=== PATIENT | female | born 1995 | race African-American/Black ===

== ENCOUNTER 2018-10-03 19:37 | Inpatient (IN) | payer OTHER, SELFPAY ==
--- NOTE | 2018-10-01 10:34 | PCM.HP.BLA ---
History and Physical Date of Admission: 10/04/18 Micki Canseco Physician TRAFFIC INVESTIGATOR H&P Signed Encounter Date: 10/01/2018 Expand All Collapse All Hide copied text Thierry for details Nae Anderson is a 23 year old female who presents for preoperative visit for planned elective repeat section on October 04, 2018. Patient reports that she does go into labor prior to that time she would like a trial of labor after however if not she will plan for scheduled section. Patient denies any vaginal bleeding, leaking fluid, regular contractions. Patient reports good movement. Denies any chest pain, shortness of breath. Patient offers no other concerns today ? PAST?MEDICAL?HISTORY PAST MEDICAL HISTORY Diagnosis Date ? ADHD ? ? Chlamydia 11/2017 ? PMH - PAST MEDICAL HISTORY OF 10/25 ? normal color vision ? depression ? ? Varicella ? ? mild case age 5 years ? PAST?SURGICAL?HISTORY PAST SURGICAL HISTORY Procedure Laterality Date ? DELIVERY ONLY ? 04/15/2015 ? , low transverse ? NEXPLANON INSERTION ? 04/2015 ? removed ? FAMILY?HISTORY FAMILY HISTORY Problem Relation Age of Onset ? No Known Problems Paternal Grandfather ? ? No Known Problems Paternal Grandmother ? ? Hypertension Maternal Grandfather ? ? No Known Problems Maternal Grandmother ? ? other (Anemia) Mother ? ? No Known Problems Father ? ? No Known Problems Sister ? ? No Known Problems Brother ? ? No Known Problems Sister ? ? No Known Problems Sister ? ? Diabetes Other ? ? MGGMO ? 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 CURRENT?MEDICATIONS ? Current Outpatient Medications: Gqwpexbb-Ag-Naz-Fe-FA ( VITAMIN) tab Take 1 tablet by mouth once daily. ? No current facility-administered medications for this visit. Allergies As of Date: 10/01/2018 (No Known Allergies) Fully Assessed 10/01/2018 ? ? REVIEW OF SYSTEMS Abdomen: no pain Bladder: no dysuria.. Expanded ROS: GENERAL: No weight loss, malaise or fevers Allergies and current medication updated:Yes ? EXAM: BP 118/76 Wt 282 lb (127.9kg) LMP 12/31/2017 ? GENERAL: pleasant, female in no apparent distress HEENT: Normocephalic and atraumatic NECK: full range of motion DERMATOLOGY: Normal, without lesions, non-icteric and non-hirsute ABDOMEN: soft, non-tender and gravid. FHR 141, FH 40cm PELVIC: deferred BIMANUAL: deferred NEURO: alert and oriented x3,exam grossly non-focal EXTREMITIES: normal ? ASSESSMENT AND PLAN: Encounter Diagnosis ? ? ICD-10-CM ? 1. with history of section, antepartum O34.219 URINE OB DIP B/O 2. 39 weeks gestation of Z3A.39 URINE OB DIP B/O ? 3. Pt has been counseled on risks/benefits and alternatives of surgery including but not limited to anesthesia, bleeding, infection, injury to pelvic structures including bowel, bladder, ureters and vessels. Pt wishes to proceed with surgery at this time. 4. C/s scheduled, TOLAC requested if spontaneous labor prior to this time. ? Micki Briscoe MD ?
[2018-10-03 18:46] LABS: ROM Internal Control Test YES-OK TO RESULT pt. (Internal QC); ROM Patient Test Negative (Negative)
[2018-10-03] MEDS: Lactated Ringers 1,000 ML 999 ML IV (19:50)
[2018-10-03 19:53] VITALS: BMI 43.2
[2018-10-03 20:02] LABS: Absolute Lymphocyte Count 1.86 X10^3/ul (0.83-4.51); Absolute Neutrophil Count 7.9 X10^3/uL (2.0-7.7); Basophil# 0.01 X10^3/uL; Basophil% 0.1 % (0-1); Eosinophil# 0.05 X10^3/uL; Eosinophils% 0.5 % (0-5); Hematocrit 39.4 % (37-47); Hemoglobin 13.3 g/dl (12.0-15.0); Lymphocyte # 1.86 X10^3/ul (4.0); Lymphocyte % 17.7 % (19-41); Mean Corp Hgb Conc 33.8 g/gl (32-36); Mean Corpuscular Hgb 30.2 pg (27.0-32.0); Mean Corpuscular Volume 89.3 fL (81-99); Mean Platelet Vol. 9.9 fl (6.2-12.0); Monocyte# 0.64 X10^3/uL; Monocyte% 6.1 % (0-10); Neutrophil # 7.87 X10^3/uL (2.7-7.7); Neutrophil % 75.1 % (47-70); Platelet Count 282 K/mm3 (150-450); RBC Distribution Width CV 13.4 % (11.6-14.6); RBC Distribution Width SD 43.7 fl (35.1-43.9); Red Blood Count 4.41 M/mm3 (4.2-5.4); White Blood Count 10.5 K/mm3 (4.4-11.0)
[2018-10-03 20:05] LABS: POSITIVE COUNT NO; POSITIVE DIFFERENTIAL NO; POSITIVE MORPHOLOGY NO
--- NOTE | 2018-10-03 20:06 | PCM.HP.BLA ---
History and Physical Date of Admission: 10/03/18 Patient Name: NAE ANDREW Date of : 89 Patient Status: Inpatient Attending Provider: Micki Briscoe Date: 10/01/18 History and Physical Date of Admission: 10/03/18 Micki Canseco Physician FURNITURE SERVICER H&P Signed Encounter Date: 10/01/2018 Expand All Collapse All Hide copied text Hover for details Nae Andrew is a 23 year old female who presents for preoperative visit for planned elective repeat section on October 04, 2018. Patient reports that she does go into labor prior to that time she would like a trial of labor after however if not she will plan for scheduled section. Patient denies any vaginal bleeding, leaking fluid, regular contractions. Patient reports good movement. Denies any chest pain, shortness of breath. Patient offers no other concerns today ? PAST?MEDICAL?HISTORY PAST MEDICAL HISTORY Diagnosis Date ? ADHD ? ? Chlamydia 11/2017 ? PMH - PAST MEDICAL HISTORY OF 10/25 ? normal color vision ? depression ? ? Varicella ? ? mild case age 5 years ? PAST?SURGICAL?HISTORY PAST SURGICAL HISTORY Procedure Laterality Date ? DELIVERY ONLY ? 04/15/2015 ? , low transverse ? NEXPLANON INSERTION ? 04/2015 ? removed ? FAMILY?HISTORY FAMILY HISTORY Problem Relation Age of Onset ? No Known Problems Paternal Grandfather ? ? No Known Problems Paternal Grandmother ? ? Hypertension Maternal Grandfather ? ? No Known Problems Maternal Grandmother ? ? other (Anemia) Mother ? ? No Known Problems Father ? ? No Known Problems Sister ? ? No Known Problems Brother ? ? No Known Problems Sister ? ? No Known Problems Sister ? ? Diabetes Other ? ? MGGMO ? 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 CURRENT?MEDICATIONS ? Current Outpatient Medications: Jpzwzari-Bx-Gyj-Fe-FA ( VITAMIN) tab Take 1 tablet by mouth once daily. ? No current facility-administered medications for this visit. Allergies As of Date: 10/01/2018 (No Known Allergies) Fully Assessed 10/01/2018 ? ? REVIEW OF SYSTEMS Abdomen: no pain Bladder: no dysuria.. Expanded ROS: GENERAL: No weight loss, malaise or fevers Allergies and current medication updated:Yes ? EXAM: BP 118/76 Wt 282 lb (127.9kg) LMP 12/31/2017 ? GENERAL: pleasant, female in no apparent distress HEENT: Normocephalic and atraumatic NECK: full range of motion DERMATOLOGY: Normal, without lesions, non-icteric and non-hirsute ABDOMEN: soft, non-tender and gravid. FHR 141, FH 40cm PELVIC: deferred BIMANUAL: deferred NEURO: alert and oriented x3,exam grossly non-focal EXTREMITIES: normal ? ASSESSMENT AND PLAN: Encounter Diagnosis ? ? ICD-10-CM ? 1. with history of section, antepartum O34.219 URINE OB DIP B/O 2. 39 weeks gestation of Z3A.39 URINE OB DIP B/O ? 3. Pt has been counseled on risks/benefits and alternatives of surgery including but not limited to anesthesia, bleeding, infection, injury to pelvic structures including bowel, bladder, ureters and vessels. Pt wishes to proceed with surgery at this time. 4. C/s scheduled, TOLAC requested if spontaneous labor prior to this time. ? Micki Briscoe MD ? ? ?
[2018-10-03] MEDS: Sodium Citrate/Citric Acid 30 ML UDC PO (20:33)
[2018-10-03] MEDS: Oxytocin 30 units/NS 500 ml 30 UNITS/500 ML IV.SOLN 167 UNITS IV (21:26)
[2018-10-03] MEDS: Ketorolac 15 MG/ML Vial 30 MG IV (22:00)
--- NOTE | 2018-10-03 22:08 | PCM.OPRPT ---
Delivery Classification: Scheduled Final MIGUELITO: 10/08/18 Final MIGUELITO Source: US <20 weeks Gestational age: 39 Weeks and 2 Days Indications: Patient presented to labor and delivery on October 03, 2018 for possible rupture of membranes. Rupture membrane test was negative. Patient was scheduled for her repeat elective on 10/04/2018 at 7:30 AM. Nursing staff was available and agreed that we could proceed with a scheduled section at this time -patient agreed Indications for : Repeat Elective Description of Procedure: After informed consent was obtained the patient was taken to the operating room she was given spinal anesthesia. He was placed in the supine position. She was then prepped and draped in normal sterile fashion. Once spinal anesthesia was found to be adequate skin incision was made with a scalpel in a Pfannenstiel fashion. It was carried down to the underlying layer of the fascia. Fascia was then incised midline with scapel and extended laterally using curved valentin. 2 straight Navarro's were placed in the superior aspect of the fascial edge and the rectus muscles were dissected off [bluntly]. Attention was then turned to the inferior aspect where again the fascial edge was grasped with 2 straight Navarro clamps tented up and the rectus muscle dissected off sharply. At this time the rectus muscles were grasped in the midline using 2 Allis clamps and scalpel was used to separate the rectus muscles. Using blunt force the peritoneum was then entered. Metzenbaums were used to take down the rectus muscles inferiorly as well as the peritoneum. At this time the vesicouterine peritoneum was identified. Uterine incision was made in a low transverse fashion with the scalpel and then entered bluntly. Gentle opposing traction was placed to extend the uterine incision. The membranes were ruptured amniotic fluid clear. 's head was then brought to the uterine incision was delivered atraumatically followed by the rest infant's body. At this time delayed cord clamping was performed mouth nose were suctioned. Infant was then handed to the waiting nursery team. The placenta was then removed with gentle traction. The uterus was removed from the intra-abdominal cavity is wrapped in a moist lap. He was cleared of all clots and debris using a moist lap. Ring clamps were placed on the uterine angles. #1 Vicryl suture was used in a running locked fashion for the first layer. Followed by second imbricating layer with #1 Vicryl. At this time then the uterus was placed back into abdominal cavity uterine incision was evaluated and noted to be of good hemostasis. Monty placed over uterine incision tubes and ovaries were evaluated they were normal. The peritoneum was grasped with Kellys. Peritoneum was reapproximated using #2 Vicryl suture in a running fashion. Monty was placed over the muscle.. The fascia was then reapproximated using #1 PDS in a running fashion. Subcutaneous layer was evaluated and Bovie was used for any small oozing that was noted per #2-0 plain gut suture was then used to reapproximate the subcutaneous layer 4-0 Monocryl was used to reapproximate the skin in a subcutaneous fashion. Dry sterile dressing was applied. Instrument lap needle count were correct ?2. Anticipated normal postoperative course for this patient. Amniotic Membrane Rupture Type: Artificial Amniotic Fluid Description: Clear Placenta Disposition: [facility] Drain: Avina to straight drain Cord Entanglement: None Cord Vessel Description: 3 Vessels Esitmated Blood Loss (ml): 800 Infant Gender: Male (1 minute): 8 (5 minute): 9 Pre-op Antibiotic Given: - - ancef 3 grams Pt instructed on risks of surgery: Bleeding, Anesthesia Risks, Infection, Injury to surrounding structure(s) including bowel and bladder Complications: None - Admit VTE Documentation VTE Present on Admission: Yes VTE Mechan Device Prophylaxis: SCD's VTE Pharm Prophylaxis ordered?: Yes
[2018-10-03 22:25] VITALS: BP 106/73; BP 138/78; PULSE 97; RESP 17; TEMP 35.8; O2SAT 97
[2018-10-03] MEDS: Lactated Ringers 1,000 ML 100 ML IV (22:30)
[2018-10-03 22:45] VITALS: BP 129/57; BP 138/78; PULSE 77; RESP 17; O2SAT 96
[2018-10-03 23:00] VITALS: BP 127/54; BP 138/78; PULSE 68; RESP 16; O2SAT 96
[2018-10-03 23:15] VITALS: BP 120/64; BP 138/78; PULSE 95; RESP 17; O2SAT 96
[2018-10-03 23:30] VITALS: BP 124/72; BP 138/78; PULSE 94; RESP 16; O2SAT 97
[2018-10-03] MEDS: Ondansetron 4 MG/2 ML Vial IV (23:36)
[2018-10-03 23:45] VITALS: BP 122/65; BP 138/78; PULSE 86; RESP 16; O2SAT 97
[2018-10-04] VITALS (16 sets, daily range): BP systolic 108–140; BP diastolic 52–78; PULSE 64–99; RESP 16–18; TEMP 35.5–36.3; O2SAT 97–100
[2018-10-04] MEDS: Lactated Ringers 500 ML 999 ML IV (04:40)
[2018-10-04 05:02] LABS: Hematocrit 35.7 % (37-47); Mean Corp Hgb Conc 33.6 g/gl (32-36); Mean Corpuscular Hgb 29.8 pg (27.0-32.0); Mean Corpuscular Volume 88.6 fL (81-99); Platelet Count 257 K/mm3 (150-450); RBC Distribution Width CV 13.2 % (11.6-14.6); RBC Distribution Width SD 41.7 fl (35.1-43.9); Red Blood Count 4.03 M/mm3 (4.2-5.4); White Blood Count 14.9 K/mm3 (4.4-11.0)
[2018-10-04 05:04] LABS: Scan Indicated on CBC? Y/N NO
[2018-10-04] MEDS: Lactated Ringers 1,000 ML 100 ML IV ×2 (05:10→11:37)
[2018-10-04] MEDS: Ketorolac 15 MG/ML Vial 30 MG IV ×3 (06:38→18:24)
[2018-10-04] MEDS: proMETHazine 25 MG/ML Syringe IV (09:10)
--- NOTE | 2018-10-04 09:22 | PN.OBGYN_ITS ---
Subjective: pt seen at bedside, doing well. pt reports good pain control. Nausea improving. denies CP, SOB, dizziness. breast feeding - Physical Exam General: Alert, Oriented x3 Abdomen: Non Tender, - - fundus firm. Dressing dry and intact Extremities: No Calf Tenderness Vital Signs Temp Pulse Resp BP Pulse Ox 97.3 F L 86 16 127/73 H 99 10/04/18 07:55 10/04/18 07:55 10/04/18 07:55 10/04/18 06:35 10/04/18 07:55 Oxygen Delivery Method Room Air Weight: 129.2 kg Body Mass Index (BMI) 43.2 Intake and Output for Last 24 Hours 10/02/18 10/03/18 10/04/18 23:59 23:59 23:59 Intake Total 800 / 800 700 / 700 Output Total 2160 / 2160 Balance 800 / 800 -1460 / -1460 Laboratory Tests Past 24 Hrs 10/03/18 10/03/18 10/03/18 18:10 19:50 19:50 WBC 10.5 RBC 4.41 Hgb 13.3 Hct 39.4 MCV 89.3 MCH 30.2 MCHC 33.8 RDW 13.4 RDW Differential 43.7 Plt Count 282 MPV 9.9 Immature Gran % (Auto) 0.500 Neut % (Auto) 75.1 H Lymph % (Auto) 17.7 L [place] % (Auto) 6.1 Eos % (Auto) 0.5 Baso % (Auto) 0.1 Absolute Neuts (auto) 7.9 H Absolute Lymphs (auto) 1.86 Total Counted Not Reportable Vag Amniotic Fld Detect Negative Blood Type O POSITIVE Antibody Screen NEGATIVE 10/04/18 04:50 WBC 14.9 H RBC 4.03 L Hgb 12.0 Hct 35.7 L MCV 88.6 MCH 29.8 MCHC 33.6 RDW 13.2 RDW Differential 41.7 Plt Count 257 MPV 10.0 Immature Gran % (Auto) Neut % (Auto) Lymph % (Auto) [place] % (Auto) Eos % (Auto) Baso % (Auto) Absolute Neuts (auto) Absolute Lymphs (auto) Total Counted Vag Amniotic Fld Detect Blood Type Antibody Screen Medical Necessity - Tobacco Use Smoking Status: Former smoker Assessment/Plan POD#1, doing well routine care pain mgmt yonis ARNDT today Labs reviewed
[2018-10-04] MEDS: Enoxaparin 40 MG/0.4 ML Syringe SC (11:38)
[2018-10-04] MEDS: 0.9% Saline Lock 10 ML Syringe IV (21:30)
[2018-10-05] MEDS: Ketorolac 15 MG/ML Vial 30 MG IV ×3 (00:15→12:27)
[2018-10-05] MEDS: 0.9% Saline Lock 10 ML Syringe IV ×2 (00:15→05:48)
[2018-10-05 01:25] VITALS: BP 124/64; PULSE 79; RESP 18; TEMP 35.9; O2SAT 98
--- NOTE | 2018-10-05 07:25 | PCM.PN.OB ---
Subjective: pt seen at bedside, doing well. pt reports good pain control. lochia mild. breast feeding going well. tolerating regular diet. Lochia mild. - Physical Exam General: Alert, Oriented x3 Abdomen: Soft, Non-Distended, - - Fundus firm. INcision site dry and intact Extremities: No Calf Tenderness Vital Signs Temp Pulse Resp BP Pulse Ox 96.6 F L 79 18 124/64 H 98 10/05/18 01:25 10/05/18 01:25 10/05/18 01:25 10/05/18 01:25 10/05/18 01:25 Oxygen Delivery Method Room Air Weight: 129.2 kg Body Mass Index (BMI) 43.2 Intake and Output for Last 24 Hours 10/03/18 10/04/18 10/05/18 23:59 23:59 23:59 Intake Total 800 / 800 2100 / 2100 Output Total 3660 / 3660 900 / 900 Balance 800 / 800 -1560 / -1560 -900 / -900 Medical Necessity - Tobacco Use Smoking Status: Former smoker Assessment/Plan POD#2 s/p Repeat cs ambulation pain mgmt dc home
--- NOTE | 2018-10-05 07:29 | PCM.DCCSEC ---
Discharge Diet: No Restrictions Discharge Activity: Return to Normal Activity, May Not Drive - for 2 weeks, May not drive while taking narcotic pain medications., May Shower, May Take a Tub Bath - in 7 days. May resume sexual activity in: 4-6 weeks Lifting Restrictions: 20 pounds Additional Activity Instructions:: Nothing in the vagina for 4-6 weeks. You may return to work/school in 6 weeks. Call your doctor if your incision/area has: Continuous Slow Oozing, Sudden Increased Bleeding, Increased Pain/ Swelling, Increased Redness, Foul Smelling Discharge Call your doctor if you observe: Fever of 101 or Higher, Using more than one pad per hour - for 2 hours Suture Line Care: Avoid Pulling/Pushing, Avoid Pinching/Bending Cleanse incision/area with: Keep Dressing Clean & Dry Additional Instructions: If you experience any of the following, contact your healthcare provider. Bleeding that soaks a pad every hour for 2 hours Fever 100.4 or higher Unrelieved incision or abdominal pain Swelling, redness, discharge or bleeding from your incision or episiotomy site Your incision begins to separate Problems urinating (including inability to urinate or burning while urinating). Visual changes Severe headache Flu-like symptoms Pain or redness in one of both of your breasts Pain, warmth, tenderness or swelling in your legs, especially the calf area Frequent nausea and vomiting Symptoms of depression or anxiety If you experience any of the following, call 911 or go to the nearest Emergency Room. Chest pain Problems breathing Seizure activity Partial or complete paralysis of a body part, slurred speech, weakness or drooping of the face, or a sudden inability to walk or hold your balance Allergies/Adverse Reactions: Allergies No Known Allergies Allergy (Verified 10/28/13 08:49) Medications to take at Discharge Vits [Prenatabs FA ] 1 tab PO DAILY 10/03/18 Ibuprofen [Motrin] 600 mg PO Q6H PRN PRN #30 tab 10/05/18 Oxycodone HCl/Acetaminophen [Percocet 5/325] 1 tablet PO Q6H PRN PRN 7 Days #20 tablet 10/05/18 Senna/Docusate Sodium [Senokot-S] 1 - 2 tab PO DAILY PRN #20 tab 10/05/18 The following prescriptions were given: Ibuprofen [Motrin] 600 mg PO Q6H PRN PRN #30 tab PRN Reason: Mild Pain (-06/03) [facility] [facility]. Oxycodone HCl/Acetaminophen [Percocet 5/325] 1 tablet PO Q6H PRN PRN 7 Days #20 tablet PRN Reason: Pain Transmission Status: [facility]. Senna/Docusate Sodium [Senokot-S] 1 - 2 tab PO DAILY PRN #20 tab PRN Reason: Constipation Transmission Status: Pending to [facility] Follow-Up: Call to make an appointment with your doctor for an incision check in 1-2 weeks. You will also need a 6 week post- follow up appointment. Test results from this visit will be discussed in further detail at your follow-up appointment, if applicable. Please Follow Up With: Micki Briscoe MD - Call to make an appointment for an incision check in 1-2 [phone] When: You will need a post- check in 6 weeks. Primary Care Physician: Saad Hopper MD [Primary Care Provider] -
--- NOTE | 2018-10-05 07:29 | PCM.DC.BLA ---
Discharge Summary Date of Admission: 10/03/18 Date of Discharge: 10/05/18 Summary: pt underwent repeat elective c/s on 10/03/18 at 39.2 wk gestation. uncomplicated- Dc home on POD#2. Hemodynamically stable - Physical Exam Vital Signs Temp Pulse Resp BP Pulse Ox 96.6 F L 79 18 124/64 H 98 10/05/18 01:25 10/05/18 01:25 10/05/18 01:25 10/05/18 01:25 10/05/18 01:25 Oxygen Delivery Method Room Air Weight: 129.2 kg Body Mass Index (BMI) 43.2 Intake and Output for Last 24 Hours 10/03/18 10/04/18 10/05/18 23:59 23:59 23:59 Intake Total 800 / 800 2100 / 2100 Output Total 3660 / 3660 900 / 900 Balance 800 / 800 -1560 / -1560 -900 / -900
[2018-10-05 09:40] VITALS: BP 124/73; PULSE 85; RESP 16; TEMP 36.2; O2SAT 98
[2018-10-05] MEDS: Enoxaparin 40 MG/0.4 ML Syringe SC (09:41)
== END 2018-10-05 13:30 | disposition home or self-care (01) | DRG 788 ==
LOC: WP 10-04 11:11 → WPOUT 10-04 12:04 → WP 10-04 12:05
PROVIDERS: Admitting Provider Obstetrics & Gynecology; Family Provider Family Medicine; PCP Family Medicine; Visit Provider Obstetrics & Gynecology
DX: O34.211 Maternal care for low transverse scar from previous cesarean delivery (principal); N85.8 Other specified noninflammatory disorders of uterus; Z3A.39 39 weeks gestation of pregnancy; Z37.0 Single live birth; Z87.891 Personal history of nicotine dependence
CPT/HCPCS: 59025; 59050; 84112; 85025; 85027; 86850; 86900; 99218; J7120; A4216; G0378; J2405

== ENCOUNTER → 2020-03-09 | Outpatient (CLI) | payer OTHER, SELFPAY | END | disposition home or self-care (01) | PROVIDERS: PCP Family Medicine; Referring Provider Otolaryngology Otolaryngology/Facial Plastic Surgery; Visit Provider Otolaryngology Otolaryngology/Facial Plastic Surgery | DX: J03.90 Acute tonsillitis, unspecified (principal) | CPT/HCPCS: 87070 ==

== ENCOUNTER → 2020-03-18 | Outpatient (CLI) | payer OTHER, SELFPAY ==
[2020-03-18 11:24] VITALS: BMI 44.4
[2020-03-22 03:06] LABS: Chlamydia By Nucleic Acid AMP Negative (Negative)
[2020-03-23 09:43] LABS: Gonococcus By Nucleic Acid AMP Negative (Negative)
== END | disposition home or self-care (01) ==
LOC: LABSPEC 14:18
PROVIDERS: PCP Family Medicine; Referring Provider Nurse Practitioner Women's Health; Visit Provider Nurse Practitioner Women's Health
DX: Z11.3 Encounter for screening for infections with a predominantly sexual mode of transmission (principal); N76.0 Acute vaginitis
CPT/HCPCS: 87070; 87205; 87491; 87591

== ENCOUNTER 2020-07-18 21:56 | Emergency (ER) | payer OTHER, SELFPAY ==
[2020-03-18 11:24] VITALS: BMI 44.4
[2020-07-18 21:57] VITALS: BP 130/99; PULSE 91; RESP 16; TEMP 35.8; O2SAT 96; BMI 41.8
--- NOTE | 2020-07-18 22:11 | ED.VIS.GEN ---
History of Present Illness Chief Complaint: Lower Extremity Injury Informant: Patient Narrative: 5-year-old female states that 2 weeks ago she played a game of basketball on . After the game she had some soreness of her right knee. She tells me she played another game on and she was doing a lay up and came down and the leg buckled. Since then she has had increasing swelling and pain to the leg. States the leg feels like it and give out. She notes pain laterally. She states that she went to urgent care and was given prednisone. She states that she believes her something more to it. She has not required any crutches or canes. She has been using a neoprene sleeve. Past Medical History - Allergies and Home Meds Allergies/Adverse Reactions: Allergies No Known Allergies Allergy (Verified 07/18/20 21:59) Primary Care Physician: Durga King DO [STAFF PHYSICIAN] - 10-14 Days if not better Past Medical History: None Surgical History: noncontributory Lives: With Family Smoking Status: Current every day smoker Drugs: None Review of Systems General: Denies: Chills, Fever, Sweats Eyes: Denies: Visual changes - bilaterally, Diplopia ENT: Denies: Rhinorrhea, Sore throat Cardiovascular: Denies: Chest pain, Palpitations Respiratory: Denies: Dyspnea, Cough, Dyspnea on exertion Gastrointestinal: Denies: Abdominal pain, Nausea, Vomiting, Diarrhea, Melena, Hematochezia Genitourinary: Denies: Dysuria, Hematuria, Frequency Musculoskeletal: Reports: Swelling, Extremity Pain. Denies: Back pain Skin: Denies: Rash, Wounds Neurological: Denies: Headache, Weakness, Numbness Physical Exam Vital Signs/Narrative: Vital Signs Temp Pulse Resp BP Pulse Ox 07/18/20 21:57 96.4 F L 91 16 130/99 H 96 Inital Vital Signs reviewed: Yes General: Well nourished, Well developed, No Acute Distress Head: Normocephalic, Atraumatic Eyes: Perrl, EOMI ENT: Moist mucous membranes, No rhinorrhea Neck: Supple, Nontender Cardiovascular: Regular rate, Regular rhythm, No murmurs Respiratory: No distress, CTA bilaterally, Chest nontender Abdomen: Soft, Nontender, Nondistended, Normal bowel sounds Back: Nontender, Normal Inspection Extremities: Tenderness - To palpation laterally of the knee. There is some mild soft tissue swelling but no palpable effusion. Ligamentous testing appears stable compared to the other side. Though the patient does guard Skin: Normal color, No rash Neurological: Alert, Oriented x3, Cranial nerves II-XII grossly intact, Normal Strength, Normal Sensation Psychological: Normal affect, Normal Mood Diagnostic/Tx/Re-eval - Medical Decision Making My interpretation of the 4 view knee x-rays is no acute fracture or effusion. Patient be discharged home with instructions to ice rest and use compression. If not improved in 10 to 14 days she will need to follow-up with orthopedics. At this point I think she most likely has a LCL strain. ED Disposition - Plan for ED Patient: Disposition: Home or Assisted Living Diagnosis: Knee LCL sprain Instructions: ED Sprain Knee Collateral Ligaments Referrals: Durga King DO [STAFF PHYSICIAN] - 10-14 Days if not better
--- NOTE | 2020-07-18 22:20 | RAD_ITS ---
STUDY: X-RAY - RIGHT KNEE REASON FOR EXAM: Female, 25 years old. injury TECHNIQUE: 4 view(s) of the knee. COMPARISON: None. FINDINGS: Normal visualized distal femur. Normal visualized proximal tibia and fibula. Normal proximal tibiofibular articulation. There is no demonstrated fracture. Normal medial femorotibial compartment. Normal lateral femorotibial compartment. Normal patellofemoral articulation. There is no demonstrated joint effusion. The soft tissue structures are unremarkable. RAD/Knee 4 or More Views IMPRESSION: Normal x-ray examination of the knee. Electronically Signed: Mikel Morales MD at 22:46 EDT , Service support ,
== END 2020-07-18 22:38 | disposition home or self-care (01) ==
LOC: ED 22:31
PROVIDERS: Emergency Provider Emergency Medicine; PCP Family Medicine
DX: S83.421A Sprain of lateral collateral ligament of right knee, initial encounter (principal); F17.200 Nicotine dependence, unspecified, uncomplicated; X58.XXXA Exposure to other specified factors, initial encounter; Y93.67 Activity, basketball; Y92.9 Unspecified place or not applicable; Y99.9 Unspecified external cause status; Z79.899 Other long term (current) drug therapy
CPT/HCPCS: 73564; 99282

== ENCOUNTER → 2020-09-23 12:13 | Outpatient (CLI) | payer OTHER, SELFPAY ==
[2020-09-23 14:03] LABS: hCG Titer Quant., Serum < 1 mIU/mL (1-3)
== END ==
PROVIDERS: PCP Family Medicine; Referring Provider Nurse Practitioner Women's Health; Visit Provider Nurse Practitioner Women's Health
DX: N92.6 Irregular menstruation, unspecified (principal)
CPT/HCPCS: 36415; 84702

== ENCOUNTER 2021-10-04 12:35 | Emergency (ER) | payer MEDICAID, SELFPAY ==
[2021-10-04 12:36] VITALS: BP 151/93; PULSE 84; RESP 16; TEMP 36.4; O2SAT 97; BMI 41.8
--- NOTE | 2021-10-04 13:29 | EDS_ITS ---
HPI HPI - Female History of Present Illness Chief Complaint: Vag Bleeding Informant: patient Narrative Narrative: 26-year-old female presenting to the emergency department chief complaint of heavy vaginal bleeding. Patient states that she got a new Nexplanon inserted in June. She has had several periods since that time. She started her menstrual cycle yesterday and it appeared normal. Today however when she was at work she felt a gush of blood and states that she had very large clots come out. She reports that she put a super tampon in and a maxi pad but she filled that within minutes. She denies any easy bruising or gum bleeding. States that this is very atypical for her. She sees Dr. Canseco for gynecology. PFSH [facility] Home Medications dextroamphetamine-amphetamine 30 mg tablet (Adderall) 40 mg PO DAILY 03/18/20 [History Last Taken Unknown] etonogestrel 68 mg subdermal implant (Nexplanon) 1 implant subdermal ONCE 03/18/20 [History Last Taken Unknown] Allergy/AdvReac Type Severity Reaction Status Date / Time No Known Allergies Allergy Verified 10/04/21 12:38 Family History Grandfather Hypertension Mother Anemia Surgical History S/P Social History household members: children number of children: 2 current occupational status: employed current occupation: [employer] history of recent travel: No sexually active: Yes Smoking Status: Current every day smoker tobacco type: cigarettes alcohol intake: current alcohol intake frequency: a few times a month substance use type: does not use what type of physical activity do you participate in: walking seatbelt use: always do you feel safe at home: Yes additional social history: single ROS ROS ED Constitutional Constitutional ED: Denies chills or weight loss Eyes Eyes: Denies change in vision or diplopia ENT ENT ED: Denies ear pain, rhinorrhea or sore throat Cardiovascular Cardiovascular: Denies chest pain, orthopnea, palpitations or racing heartbeat Respiratory/Chest Respiratory/Chest: Denies cough, dyspnea or orthopnea Gastrointestinal Gastrointestinal: Denies abdominal pain, diarrhea, nausea or vomiting Genitourinary Genitourinary ED: Reports other Details: Heavy vaginal bleeding ; Denies dysuria, hematuria or urinary frequency Musculoskeletal Musculoskeletal: Denies arthralgias or myalgias Integumentary Denies abscess or rash Neurologic Neurologic: Denies headache(s) or weakness Psychiatric Psychiatric: Denies anxiety, depression, suicidal ideation or suicidal thoughts Endocrine Endocrinology: Denies polydipsia, polyphagia or polyuria Allergic/Immunologic Allergic/Immunologic ED: Denies mouth swelling, tongue swelling or urticaria EXAM Physical Exam Const Vital Signs: 10/04/21 12:36 Temperature 97.6 F L Temperature Source Temporal Pulse Rate 84 Respiratory Rate 16 Blood Pressure 151/93 H Blood Pressure Mean 112 Pulse Ox 97 Oxygen Delivery Method Room Air Positive well nourished, well developed and obese General Appearance ED: well developed Nutritional Appearance: obese HEENT Reports normocephalic, head/scalp atraumatic and moist mucous membranes Eyes PERRL and EOMs intact bilaterally Neck no lymphadenopathy, supple and no JVD Resp normal respiratory effort and clear to auscultation bilaterally Cardio regular rate, regular rhythm and no murmurs GI normal to inspection, nondistended, normoactive bowel sounds and non-tender Palpation: soft Back/Spine no CVA tenderness and normal ROM Extremity normal to inspection General Extremety ED: Negative for edema General Extremity: Negative for edema Neuro oriented x3 and CN's II-XII intact bilaterally Sensorium / Orientation: alert Motor Exam: strength 5/5 throughout Psych mental status grossly normal Mood & Affect: Negative for depressed or tearful Skin no rashes or lesions noted and no wounds MDM MDM MDM Narrative Medical decision making narrative: Hemoglobin 13.7 platelet count of 350. Normal coagulation times and her test is negative. Patient feels reassured. 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 Lab Data Labs: Laboratory Results - last 24 hr 10/04/21 10/04/21 10/04/21 13:45 13:45 13:45 WBC 7.9 RBC 4.49 Hgb 13.7 Hct 41.1 MCV 91.5 MCH 30.5 MCHC 33.3 RDW Std Deviation 40.4 RDW Coeff of Jory 12.1 Plt Count 350 MPV 9.2 Immature Gran % (Auto) 0.400 Neut % (Auto) 64.2 Lymph % (Auto) 27.5 [place] % (Auto) 6.6 Eos % (Auto) 0.9 Baso % (Auto) 0.4 Absolute Neuts (auto) 5.1 Absolute Lymphs (auto) 2.18 Nucleated RBC % 0 PT 12.7 INR 1.0 APTT 27.3 Serum , Qual NEGATIVE Discharge Plan Triage Chief Complaint: Vag Bleeding ED Provider: Abel Rodríguez Dx/Rx/DC Orders Clinical Impression: DUB (dysfunctional uterine bleeding) Instructions: ED Dysfunctional Uterine Bleeding Prescriptions: No Action dextroamphetamine-amphetamine [Adderall] 30 mg tablet 40 mg PO DAILY Nexplanon 68 mg implant 1 implant subdermal ONCE Rx Instructions: as a single dose Primary Care Provider: Saad Hopper Referrals: Micki Briscoe MD [STAFF PHYSICIAN] - As Needed Saad Hopper MD [Primary Care Provider] - Disposition Disposition: Home, Self Care
[2021-10-04 13:51] LABS: Absolute Lymphocyte Count 2.18 X10^3/uL (0.83-4.51); Absolute Neutrophil Count 5.1 X10^3/uL (2.0-7.7); Basophil# 0.03 X10^3/uL; Basophil% 0.4 % (0-1); Eosinophil# 0.07 X10^3/uL; Eosinophils% 0.9 % (0-5); Hematocrit 41.1 % (37-47); Hemoglobin 13.7 g/dL (12.0-15.0); Lymphocyte # 2.18 X10^3/ul (0.83-4.51); Lymphocyte % 27.5 % (19-41); Mean Corp Hgb Conc 33.3 g/dL (32-36); Mean Corpuscular Hgb 30.5 pg (27.0-32.0); Mean Corpuscular Volume 91.5 fL (81-99); Mean Platelet Vol. 9.2 fl (6.2-12.0); Monocyte# 0.52 X10^3/uL; Monocyte% 6.6 % (0-10); NRBC Flagged by Analyzer 0 % (0-5); Neutrophil # 5.09 X10^3/uL (2.7-7.7); Neutrophil % 64.2 % (47-70); Platelet Count 350 K/mm3 (150-450); RBC Distribution Width CV 12.1 % (11.6-14.6); RBC Distribution Width SD 40.4 fl (35.1-43.9); Red Blood Count 4.49 M/mm3 (4.2-5.4); White Blood Count 7.9 K/mm3 (4.4-11.0)
[2021-10-04 14:01] LABS: Prothrombin Time (Protime)PT. 12.7 SECONDS (11.7-14.9)
[2021-10-04 14:03] LABS: Internal QC Validated? YES +Cl - CLEAR BKGD; Pregnancy, Serum, hCG Quali. NEGATIVE Negative
[2021-10-04 14:05] LABS: Partial Thromboplast Time 27.3 Seconds (24.1-36.2)
[2021-10-04 14:40] VITALS: PULSE 68; RESP 18; O2SAT 99
== END 2021-10-04 14:41 | disposition home or self-care (01) ==
PROVIDERS: Emergency Provider Emergency Medicine; PCP Family Medicine; Visit Provider Emergency Medicine
DX: N93.8 Other specified abnormal uterine and vaginal bleeding (principal); F17.210 Nicotine dependence, cigarettes, uncomplicated; Z96.9 Presence of functional implant, unspecified
CPT/HCPCS: 84703; 85025; 85610; 85730; 99282

== ENCOUNTER 2024-07-29 11:09 | Emergency (ER) | payer SELFPAY ==
[2024-07-29 11:11] VITALS: BP 154/100; PULSE 101; RESP 18; TEMP 37; O2SAT 96; BMI 47.0
--- NOTE | 2024-07-29 11:48 | EX.ED.GENINJ ---
HPI History of Present Illness Chief Complaint: Bite Informant: patient Narrative Narrative: Patient 29-year-old female with no signal past medical history presenting for evaluation after concern for spider bite. She notes she was outside yesterday and was leaning against a fence post when she suddenly felt a pain in her right forearm. She did not see blood but she think she was bitten possibly by a spider. Notes that she has had increased redness and a pustule there. Today she feels that her throat is slightly sore and having difficult time swallowing. Denies any speech changes. She also feels that her heart is racing more. She is worried she was having a more severe allergic reaction. She came in for further evaluation. Did not take any medications for symptoms today. Does report a remote history of MRSA infection. Denies any other rash or skin changes. No other complaints or concerns at this time. Denies any sick contacts. No fever reported. PFSH PFSH Home Medications ?Medication ?Instructions ?Recorded ?Last Taken ?Type dextroamphetamine-amphetamine 30 40 mg PO DAILY 03/18/20 Unknown History mg tablet (Adderall) etonogestrel 68 mg subdermal 1 implant subdermal ONCE 03/18/20 Unknown History implant (Nexplanon) amoxicillin 875 mg-potassium 1 tab PO Q12H #14 tabs 07/29/24 Unknown Rx clavulanate 125 mg tablet Allergy/AdvReac Type Severity Reaction Status Date / Time No Known Allergies Allergy Verified 07/29/24 11:13 Family History Grandfather Hypertension Mother Anemia Surgical History S/P Social History household members: children number of children: 2 current occupational status: employed current occupation: [employer] history of recent travel: No sexually active: Yes Smoking Status: Current every day smoker tobacco type: cigarettes alcohol intake: current alcohol intake frequency: a few times a month substance use type: does not use what type of physical activity do you participate in: walking seatbelt use: always do you feel safe at home: Yes additional social history: single ROS ROS ED Constitutional Constitutional ED: Denies chills, fever(s) or sweats ENT ENT ED: Reports sore throat; Denies ear pain or rhinorrhea Cardiovascular Cardiovascular: Reports racing heartbeat; Denies chest pain Respiratory/Chest Respiratory/Chest: Denies cough or dyspnea Gastrointestinal Gastrointestinal: Denies nausea or vomiting Musculoskeletal Musculoskeletal: Denies arthralgias or myalgias Integumentary Reports rash Neurologic Neurologic: Denies paresthesias or weakness EXAM Physical Exam Const Vital Signs: 07/29/24 11:11 Temperature 98.6 F Temperature Source Oral Pulse Rate 101 H Respiratory Rate 18 Blood Pressure 154/100 H Blood Pressure Mean 118 Pulse Ox 96 Oxygen Delivery Method Room Air Positive well nourished and well developed General Appearance ED: well developed and NAD HEENT Reports TM's clear HEENT Narrative: mild erythema of the uvula with no edema noted. Midline. Normal phonation. Normal tonsils with no erythema, exudate or edema present. atraumatic Tympanic Membrane ED: Yes TM's clear Eyes PERRL Neck full ROM Neck Narrative: no stridor General: Negative for tenderness Chest Wall inspection of chest normal and palpation of chest normal Resp normal respiratory effort and clear to auscultation bilaterally Auscultation: Negative for rhonchi or wheezes Cardio regular rhythm Rate: regular rate GI normal to inspection, nondistended, normoactive bowel sounds Extremity normal to inspection and full ROM General Extremety ED: Negative for deformity or edema General Extremity: Negative for deformity or edema Neuro oriented x3 and no focal motor deficits Sensorium / Orientation: alert Psych mental status grossly normal and thought process normal Skin Skin Narrative: small pustule present on the right distal forearm with small area of surrounding erythema. No associated induration, no fluctuance. No crepitus. No spontaneous drainage. No associated lymphangitic streaking. MDM MDM MDM Narrative Medical decision making narrative: Patient evaluated for wound to her right forearm after she states some type of bite or sting yesterday. Now feels that her heart is racing and is concerned that her throat might be swelling. On exam patient overall is well-appearing. Right forearm has a small pustule some mild surrounding erythema. Suspect that this is more reactive and more of an exaggerated histamine response to the bite or sting she sustained yesterday and not infectious or an abscess. It does not look like a spider bite as well as only 1 central small pustule and she did not see a spider. Will justin the area of erythema with a pen so the patient can monitor. At this time we will treat conservatively with topical steroid, daily Zyrtec and cool compresses as well as anti-inflammatories. Counseled that if the redness worsens she develops fever or chills I would start her on Augmentin for cellulitis. Is given a [id number] prescription for this. I did consider incision and drainage/deroofing the pustule but I suspect if it is from a bite it is sterile and the cons outweigh the benefits. Discussed this with patient and she is agreeable. I do not feel that there is a deeper abscess requiring I&D at this time. She does not have any physical exam finding consistent with hives, anaphylaxis, strep throat or uvulitis. Patient is well-appearing. Will be discharged home with return precautions. Patient left the ER without her discharge paperwork/prescription. Given to the front in case she returns. Discharge Plan Triage Chief Complaint: Bite ED Provider: Annie Tinajero Dx/Rx/DC Orders Clinical Impression: Accidental insect sting Instructions: ED Nonpoisonous Spider Bite Prescriptions: New amoxicillin-pot clavulanate 875-125 mg tablet 1 tab PO Q12H Qty: 14 0RF No Action dextroamphetamine-amphetamine [Adderall] 30 mg tablet 40 mg PO DAILY Nexplanon 68 mg implant 1 implant subdermal ONCE Rx Instructions: as a single dose Primary Care Provider: Saad Hopper Referrals: Saad Hopper MD [Primary Care Provider] - Activity Restrictions/Additional Instructions: I suspect you are having strong localized response to what ever bite or sting you incurred yesterday. I do not know if this was a spider or some type of bee/hornet sting. I recommend taking a daily antihistamine such as Zyrtec, using [id number] hydrocortisone 1% ointment to the area and anti-inflammatory such as ibuprofen for the next day or 2. If after 48 hours it is worsening, you develop fever, chills or increased pain despite the above measures you have been given a [id number]-[id number] prescription for an antibiotic in case this does turn into a cellulitis. If you have further concerns to the follow-up with your primary care doctor return to the emergency room for wound check. Print Language: Kinyarwanda Disposition Disposition: Home, Self Care Discharge Date/Time: 07/29/24 12:17
--- NOTE | 2024-07-29 12:14 | ED.RN ---
pt left prior to dc. site unmarked and dr had not comepleted dc
--- NOTE | 2024-07-29 12:17 | ED.RN ---
called pt. to come chart picker rx and dc papers in triage
== END 2024-07-29 12:17 | disposition home or self-care (01) ==
PROVIDERS: Emergency Provider Emergency Medicine; PCP Family Medicine; Visit Provider Emergency Medicine
DX: S50.861A Insect bite (nonvenomous) of right forearm, initial encounter (principal); L08.9 Local infection of the skin and subcutaneous tissue, unspecified; W57.XXXA Bitten or stung by nonvenomous insect and other nonvenomous arthropods, initial encounter; R00.0 Tachycardia, unspecified; R13.10 Dysphagia, unspecified; F17.210 Nicotine dependence, cigarettes, uncomplicated; Z79.899 Other long term (current) drug therapy
CPT/HCPCS: 99282; A4216